=== PATIENT | female | born 1980 | race Caucasian/White ===

== ENCOUNTER 2017-05-09 17:43 | Emergency (ER) | payer BC, OTHER ==
[2017-05-09 18:32] LABS: CHLORIDE,CL 102 mmol/L (98-107); SODIUM,NA 138 mmol/L (136-145)
--- NOTE | 2017-05-09 18:40 | EDM.PDOC ---
<Bubba Ren - Last Filed: 05/09/17 18:37> ED HPI GENERAL MEDICAL PROBLEM - General Chief Complaint: Abdominal Pain Stated Complaint: Abdominal Pain; Vaginal Bleeding Time Seen by Provider: 05/09/17 17:55 Source of Information: Reports: Patient, Old Records, RN, RN Notes Reviewed History Limitations: Reports: No Limitations - History of Present Illness INITIAL COMMENTS - FREE TEXT/NARRATIVE: Patient presents emergency room at [facility] complaining of abdominal pain with cramping with concurrent vaginal bleeding. The patient states that she had her regular menstrual cycle which completed on April 30. The patient states that she has regular cycles every 28 days. The patient states she has her heavy flow days on days 3 and 4. The patient states that she started having vaginal spotting about 4 days ago. The patient thought her period Was occurring early therefore she was not all that concerned until yesterday when her menstrual flow became very heavy and unusual to her. The patient states she has felt more fatigued. The patient states she has lower pelvic pain that is bilateral. The patient has felt somewhat nauseous but has not vomited. The patient states that she has been trying to get over the past year. The patient had a LEEP procedure last spring by Dr. Galeano. Onset: Gradual Onset Date: 05/06/17 Duration: Getting Worse, Waxing/Waning Abdomen Pain Score (Numeric/FACES): 3 - Related Data Allergies Allergy/AdvReac Type Severity Reaction Status Date / Time trimethoprim [From Bactrim] Allergy Mild Itching Verified 05/09/17 18:30 sulfamethoxazole Allergy Itching Verified 05/09/17 18:30 [From Bactrim] Home Meds: Home Meds Ondansetron [Zofran ODT] 4 mg PO Q4H PRN #20 tab.dis 05/15/16 [Rx] Acetaminophen [Tylenol Extra Strength] 500 mg PO Q6H PRN 05/09/17 [History] Amylase/Lipase/Protease [Pancrelipase 5,000] 1 cap PO TIDMEALS 05/09/17 [History ] ClonazePAM [KlonoPIN] 1 tab PO BID PRN 05/09/17 [History] Ibuprofen 800 mg PO Q4HR PRN 05/09/17 [History] Lactobac Cmb #3/Fos/Pantethine [Probiotic & Acidophilus] 1 each PO DAILY [History] Lansoprazole [Prevacid] 30 mg PO DAILY 05/09/17 [History] Melatonin 10 mg PO BEDTIME 05/09/17 [History] Nicotine [Habitrol] 21 mg TRDERM DAILY 05/09/17 [History] Prenat Vit Comb.10/Iron/Fa/Dha [Vitafol-OB + DHA] 1 each PO DAILY 05/09/17 [ History] Sucralfate [Carafate] 1 gm PO ASDIRECTED 05/09/17 [History] traMADol HCl [Tramadol HCl] 1 tab PO Q6H PRN 05/09/17 [History] Past Medical History HEENT History: Reports: None Gastrointestinal History: Reports: Irritable Bowel Syndrome, Pancreatitis, Other (See Below) Other Gastrointestinal History: ERCP, stent 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 Neurological History: Reports: Concussion Psychiatric History: Reports: Anxiety - Infectious Disease History Infectious Disease History: Reports: Chicken Pox - Past Surgical History HEENT Surgical History: Reports: Oral Surgery Social & Family History - Family History HEENT: Reports: None Cardiac: Reports: Bypass, Hypertension, Other (See Below) Other Cardiac Family History: mother quad bypass Respiratory: Reports: None Other Respiratory Family Hisory: Lung Ca GI: Reports: None : Reports: None OBGYN: Reports: None Musculoskeletal: Reports: None Neurological: Reports: None Psychiatric: Reports: None Endocrine/Metabolic: Reports: None Hematologic: Reports: None Immunologic: Reports: None Dermatologic: Reports: None Oncologic: Reports: Colon, Other (See Below) Other Oncologic Family History: grandma colon ca - Tobacco Use Smoking Status *Q: Current Every Day Smoker Years of Tobacco use: 17 Packs/Tins Daily: 0.5 Used Tobacco, but Quit: No Second Hand Smoke Exposure: Yes - Alcohol Use Days Per Week of Alcohol Use: 1 Number of Drinks Per Day: 4 Total Drinks Per Week: 4 - Recreational Drug Use Recreational Drug Use: No ED ROS GENERAL - Review of Systems Review Of Systems: See Below Constitutional: Reports: Fatigue. Denies: Fever, Chills, Weakness Respiratory: Denies: Shortness of Breath, Cough Cardiovascular: Denies: Chest Pain, Palpitations GI/Abdominal: Reports: Abdominal Pain, Nausea. Denies: Diarrhea, Vomiting : Reports: Hematuria, Irregular Menses, Pain. Denies: Flank Pain Skin: Reports: No Symptoms Neurological: Reports: No Symptoms ED EXAM, RENAL/ - Physical Exam Exam: See Below Exam Limited By: No Limitations General Appearance: Alert, No Apparent Distress Respiratory/Chest: No Respiratory Distress, Lungs Clear, Normal Breath Sounds Cardiovascular: Normal Peripheral Pulses, Regular Rate, Rhythm GI/Abdominal: Normal Bowel Sounds, Soft, Non-Tender (Female) Exam: Deferred Neurological: Alert, Oriented Skin Exam: Warm, Dry, Intact, Normal Color, No Rash Course - Vital Signs Last Recorded V/S: Last Vital Signs Temp 37.7 C 05/09/17 17:55 Pulse 93 05/09/17 17:55 Resp 18 05/09/17 17:55 BP 107/57 L 05/09/17 18:30 Pulse Ox 100 05/09/17 17:55 - Orders/Labs/Meds Orders: Active Orders 24 hr Category Date Time Status Abdomen Pelvis w Cont [CT] Stat Exams 05/09/17 17:57 Taken Sodium Chloride 0.9% [Saline Flush] Med 05/09/17 18:56 Active 10 ml FLUSH ASDIRECTED PRN Peripheral IV Insertion Adult [OM.PC] Routine Oth 05/09/17 18:56 Ordered Medication Orders Sodium Chloride (Saline Flush) 10 ml FLUSH ASDIRECTED PRN PRN Reason: Keep Vein Open Labs: Laboratory Tests 05/09/17 05/09/17 05/09/17 Range/Units 18:00 18:00 18:00 WBC 14.6 H (4.0-10.0) x10^3/uL RBC 3.81 L (4.00-5.50) x10^6/uL Hgb 11.9 L (12.0-16.0) g/dL Hct 35.5 (33.0-47.0) % MCV 93.2 H D (78.0-93.0) fL MCH 31.2 (26.0-32.0) pg MCHC 33.5 (32.0-36.0) g/dL RDW Coeff of Blayne 14.9 (10.0-15.0) % Plt Count 297 D (130-400) x10^3/uL Neut % (Auto) 73.4 (50.0-80.0) % Lymph % (Auto) 17.2 L (25.0-50.0) % [place] % (Auto) 8.6 (2.0-11.0) % Eos % (Auto) 0.7 (0.0-4.0) % Baso % (Auto) 0.1 L (0.2-1.2) % Sodium 138 (136-145) mmol/L Potassium 3.2 L (3.5-5.1) mmol/L Chloride 102 (98-107) mmol/L Carbon Dioxide 26 (21-32) mmol/L BUN 19 H (7-18) mg/dL Creatinine 0.8 (0.55-1.02) mg/dL Est Cr Clr Drug Dosing TNP Estimated GFR (MDRD) > 60 Glucose 89 (74-106) mg/dL Lactic Acid 0.9 (0.4-2.0) mmol/L Calcium 9.1 (8.5-10.1) mg/dL C-Reactive Protein 0.6 (<=0.9) mg/dL Amylase (25-115) U/L Lipase (73-393) U/L Urine Color (YELLOW) Urine Appearance (CLEAR) Urine pH (5.0-8.0) Ur Specific [place]on Urine Protein (NEGATIVE) mg/dL Urine Glucose (UA) (NEGATIVE) mg/dL Urine Ketones (NEGATIVE) mg/dL Urine Occult Blood (NEGATIVE) Urine Nitrite (NEGATIVE) Urine Bilirubin (NEGATIVE) Urine Urobilinogen (0.2) EU/dL Ur Leukocyte Esterase (NEGATIVE) Urine RBC (NOT SEEN) /HPF Urine WBC (NOT SEEN) /HPF Ur Squamous Epith Cells (NEGATIVE) /HPF Urine Bacteria (NEGATIVE) /HPF Urine Mucus (NEGATIVE) /LPF Urine HCG, Qual (NEGATIVE) 05/09/17 05/09/17 05/09/17 Range/Units 18:00 18:31 18:31 WBC (4.0-10.0) x10^3/uL RBC (4.00-5.50) x10^6/uL Hgb (12.0-16.0) g/dL Hct (33.0-47.0) % MCV (78.0-93.0) fL MCH (26.0-32.0) pg MCHC (32.0-36.0) g/dL RDW Coeff of Blayne (10.0-15.0) % Plt Count (130-400) x10^3/uL Neut % (Auto) (50.0-80.0) % Lymph % (Auto) (25.0-50.0) % [place] % (Auto) (2.0-11.0) % Eos % (Auto) (0.0-4.0) % Baso % (Auto) (0.2-1.2) % Sodium (136-145) mmol/L Potassium (3.5-5.1) mmol/L Chloride (98-107) mmol/L Carbon Dioxide (21-32) mmol/L BUN (7-18) mg/dL Creatinine (0.55-1.02) mg/dL Est Cr Clr Drug Dosing Estimated GFR (MDRD) Glucose (74-106) mg/dL Lactic Acid (0.4-2.0) mmol/L Calcium (8.5-10.1) mg/dL C-Reactive Protein (<=0.9) mg/dL Amylase 44 (25-115) U/L Lipase 251 (73-393) U/L Urine Color Yellow (YELLOW) Urine Appearance Clear (CLEAR) Urine pH 6.5 (5.0-8.0) Ur Specific Hermon >=1.030 Urine Protein Negative (NEGATIVE) mg/dL Urine Glucose (UA) Negative (NEGATIVE) mg/dL Urine Ketones 15 H (NEGATIVE) mg/dL Urine Occult Blood Large H (NEGATIVE) Urine Nitrite Negative (NEGATIVE) Urine Bilirubin Small H (NEGATIVE) Urine Urobilinogen 1.0 (0.2) EU/dL Ur Leukocyte Esterase Negative (NEGATIVE) Urine RBC 20-30 H (NOT SEEN) /HPF Urine WBC 0-5 (NOT SEEN) /HPF Ur Squamous Epith Cells Few H (NEGATIVE) /HPF Urine Bacteria Few H (NEGATIVE) /HPF Urine Mucus Rare H (NEGATIVE) /LPF Urine HCG, Qual Negative (NEGATIVE) Meds: Medications Generic Name Dose Route Start Last Admin Trade Name Freq PRN Reason Stop Dose Admin Sodium Chloride 10 ml 05/09/17 18:56 Saline Flush FLUSH ASDIRECTED PRN Keep Vein Open Discontinued Medications Generic Name Dose Route Start Last Admin Trade Name Freq PRN Reason Stop Dose Admin Morphine Sulfate 4 mg 05/09/17 19:26 05/09/17 19:42 Morphine IVPUSH 05/09/17 19:27 4 mg ONETIME ONE Administration Departure - Departure Disposition: Home, Self-Care 01 Clinical Impression: Ovarian cyst, Abdominal pain - Discharge Information Instructions: Ovarian Cyst Referrals: Darci Castaneda PA-C [Primary Care Provider] - Forms: ED Department Discharge Additional Instructions: Home to rest. Please excuse from work tomorrow due to illness. Return to ER if you have worsening abdominal pain, bleeding, fever, or other worrisome signs or symptoms. Follow-up with [facility] in the next 7-10 days for recheck. - Problem List Review Problem List Initiated/Reviewed/Updated: Yes <Claus Smith - Last Filed: 05/09/17 21:16> ED HPI GENERAL MEDICAL PROBLEM - History of Present Illness Location: Reports: Abdomen (burning abdominal pain) Quality: Reports: Burning Severity: Moderate Departure - Departure Time of Disposition: 21:14
[2017-05-09 18:49] VITALS: BP 107/57
[2017-05-09] MEDS ORDERED: Sodium Chloride 0.9% 10 ML Syringe FLUSH PRN (18:56)
[2017-05-09] MEDS ORDERED: Morphine 4 MG/ML Syringe IVPUSH ONE (19:26)
--- NOTE | 2017-05-10 00:46 | ER ---
Date of Service: 05/09/2017 SUBJECTIVE: Dasha presents to the emergency room with complaints of lower abdominal pain. Please see Bubba Ren's dictation regarding the initial care for this patient. Again, the patient states that she has been experiencing discomfort for approximately 2 days and states that it worsened yesterday. She states that she has noticed some clotting and is quite concerned because of this. The patient states that she is not experiencing any fever or chills. She states that she is actively trying to become and her last episode of intercourse was on approximately 05/02/2017. The patient is a 1, para 0, AB 1. She states that she is experiencing intermittent abdominal cramping and occasional sharp spasms of pain. PAST MEDICAL HISTORY: 1. Chronic pancreatitis. 2. GERD. MEDICATIONS: 1. Zofran ODT. 2. Tylenol Extra Strength. 3. Ibuprofen. 4. Klonopin. 5. vitamin. 6. Melatonin. 7. Prevacid. 8. Probiotics/acidophilus. 9. Tramadol. 10.Carafate. 11.Amylase/lipase. 12.Protease enzymes. ALLERGIES: Bactrim. REVIEW OF SYSTEMS: General: No fever or chills. HEENT: No sore throat, rhinorrhea, or congestion. Respiratory: No shortness of breath. Cardiac: Denies any substernal chest pain. No jaw, arm, neck, or back pain. GI/: Complains of lower abdominal pain with vaginal bleeding of maroon- colored blood with passage of occasional blood clots. She denies any diarrhea or vomiting. No nausea. No melena, hematochezia, or hematemesis. : Denies any dysuria. Musculoskeletal: No myalgias or arthralgias. Neurologic: No fainting, blackouts, or lightheadedness. PHYSICAL EXAMINATION: General: This is a 36-year-old female patient, who is in no acute distress. Vital Signs: Initial blood pressure was 88/47, was rechecked and was 107/57; heart rate is 93; temperature is 37.7; respiratory rate is 18; and O2 saturations 100%. Skin: Warm, pale, and dry. HEENT: Head is normocephalic, atraumatic. Eyes, PERRLA. Extraocular movements intact. Mouth, oral mucosa is moist. Lungs: Clear to auscultation. Heart: Regular rate and rhythm. Abdomen: Soft and nontender. There is no hepatosplenomegaly noted. There are no masses noted. Extremities: Without edema. Neurologic: The patient is alert and oriented. Answers all questions appropriately. Her speech is fluent. Her gait is within normal limits. LABORATORY DATA: WBCs 14.6, hemoglobin is 11.9, and platelets are 297. Chemistry: Sodium is 138, potassium is 3.2, chloride is 102, bicarb is 26, BUN is 19, creatinine is 0.8, GFR is greater than 60, glucose is 89, lactic acid is 0.9, and calcium is 9.1. CRP is 0.6, amylase is 44, and lipase is 251. Urinalysis was obtained; specific gravity is 1.030, pH was 6.5, negative for protein, glucose, nitrites and leukocyte esterase. She did have 15 ketones, large occult blood, which is secondary to the vaginal bleeding. She also did have small bilirubin. CT scan of the patient's abdomen and pelvis with IV contrast was obtained. She did have evidence of chronic pancreatitis and also evidence of right adnexal cyst measuring 3.7 cm with minimal free fluid in the pelvic cul-de-sac. EMERGENCY ROOM COURSE: IV access had been established. The patient was given 4 mg of morphine IV with good resolution of her pain. Pelvic exam was performed. Her cervix was closed. She had no adnexal or cervical motion discomfort. No discharge noted. She did have small amount of clotted blood in the vagina and a scant amount of maroon-colored blood coming from the cervix. ASSESSMENT: Lower abdominal pain, likely secondary to a ruptured ovarian cyst. PLAN: The patient will be discharged. Tylenol, ibuprofen for discomfort. Return if there is any vaginal discharge noted. Also, return if she develops any worsening discomfort, fever, chills, or other worrisome signs or symptoms. I would like her to follow up with her [facility] in the next 7 to 10 days. All questions were answered. MWK: 05/09/2017 21:28:20 MODL: 05/10/2017 00:35:55 /[id number]
== END 2017-05-09 21:19 | disposition home or self-care (01) ==
LOC: VM.ED 17:43
DX: N83.291 Other ovarian cyst, right side (principal); K21.9 Gastro-esophageal reflux disease without esophagitis; F17.210 Nicotine dependence, cigarettes, uncomplicated; Z88.1 Allergy status to other antibiotic agents; Z88.8 Allergy status to other drugs, medicaments and biological substances; Z88.2 Allergy status to sulfonamides
CPT/HCPCS: 36415; 74177; 80048; 81001; 81025; 82150; 83605; 83690; 85025; 86140; 96374; 99284; J2270

== ENCOUNTER 2017-05-27 10:48 | Inpatient (IN) | payer BC, OTHER ==
[2017-05-27] MEDS ORDERED: Morphine 4 MG/ML Syringe IVPUSH ONE (11:38)
[2017-05-27] MEDS ORDERED: Sodium Chloride 0.9% 1,000 ML IV ONE (11:38)
[2017-05-27] MEDS ORDERED: Ondansetron 4 MG/2 ML SDV IVPUSH ONE (11:38)
[2017-05-27] MEDS ORDERED: HYDROmorphone 1 MG/ML Syringe IVPUSH ONE ×2 (12:10→13:19)
[2017-05-27 12:27] LABS: CHLORIDE,CL 104 mmol/L (98-107); SODIUM,NA 140 mmol/L (136-145)
[2017-05-27] MEDS ORDERED: Ertapenem 1 GM in Sodium Chloride 0.9% 100 ML IV SCH (12:30)
[2017-05-27] MEDS ORDERED: Ketorolac 30 MG/ML SDV IVPUSH ONE (12:44)
[2017-05-27] MEDS: Sodium Chloride 0.9% 1,000 ML IV SCH ×2 (13:54→22:05)
--- NOTE | 2017-05-27 13:54 | EDM.PDOC ---
ED HPI GENERAL MEDICAL PROBLEM - General Chief Complaint: Abdominal Pain Stated Complaint: ABDOMINAL PAIN Time Seen by Provider: 05/27/17 11:16 Source of Information: Reports: Patient History Limitations: Reports: No Limitations - History of Present Illness INITIAL COMMENTS - FREE TEXT/NARRATIVE: Pt. states that she went out to eat at a [employer] last night. Throughout the night last night, she developed worsening onset of upper abdominal pain with radiation into the back. Pt. states that she is experiencing nausea but not vomiting. She denies any fever or chills. She has a history of recurrent pancreatitis with her last episode being this past spring. She was seen in ER last month with lower abdominal pain thought to be secondary to ovarian cyst. Onset: Today Onset Time: 05:00 Location: Reports: Abdomen Quality: Reports: Stabbing Severity: Severe Upper Abdominal Pain Score (Numeric/FACES): 9 - Related Data Allergies Allergy/AdvReac Type Severity Reaction Status Date / Time trimethoprim [From Bactrim] Allergy Mild Itching Verified 05/27/17 11:20 sulfamethoxazole Allergy Itching Verified 05/27/17 11:20 [From Bactrim] Home Meds: Home Meds Ondansetron [Zofran ODT] 4 mg PO Q4H PRN #20 tab.dis 05/15/16 [Rx] Acetaminophen [Tylenol Extra Strength] 500 mg PO Q6H PRN 05/09/17 [History] Amylase/Lipase/Protease [Pancrelipase 5,000] 1 cap PO TIDMEALS 05/09/17 [History ] ClonazePAM [KlonoPIN] 1 tab PO BID PRN 05/09/17 [History] Ibuprofen 800 mg PO Q4HR PRN 05/09/17 [History] Lactobac Cmb #3/Fos/Pantethine [Probiotic & Acidophilus] 1 each PO DAILY [History] Lansoprazole [Prevacid] 30 mg PO DAILY 05/09/17 [History] Melatonin 10 mg PO BEDTIME 05/09/17 [History] Prenat Vit Comb.10/Iron/Fa/Dha [Vitafol-OB + DHA] 1 each PO DAILY 05/09/17 [ History] traMADol HCl [Tramadol HCl] 1 tab PO Q6H PRN 05/09/17 [History] Past Medical History HEENT History: Reports: None Gastrointestinal History: Reports: Irritable Bowel Syndrome, Pancreatitis, Other (See Below) Other Gastrointestinal History: ERCP, stent for bile duct - 2 months ago - was taken out, nerve block to surgical area [employer] History: Reports: Spontaneous Neurological History: Reports: Concussion Psychiatric History: Reports: Anxiety - Infectious Disease History Infectious Disease History: Reports: Chicken Pox - Past Surgical History HEENT Surgical History: Reports: Oral Surgery Social & Family History - Family History HEENT: Reports: None Cardiac: Reports: Bypass, Hypertension, Other (See Below) Other Cardiac Family History: mother quad bypass Respiratory: Reports: None Other Respiratory Family Hisory: Lung Ca GI: Reports: None : Reports: None OBGYN: Reports: None Musculoskeletal: Reports: None Neurological: Reports: None Psychiatric: Reports: None Endocrine/Metabolic: Reports: None Hematologic: Reports: None Immunologic: Reports: None Dermatologic: Reports: None Oncologic: Reports: Colon, Other (See Below) Other Oncologic Family History: grandma colon ca - Tobacco Use Smoking Status *Q: Current Every Day Smoker Years of Tobacco use: 15 Packs/Tins Daily: 0.3 Used Tobacco, but Quit: No Second Hand Smoke Exposure: Yes - Alcohol Use Days Per Week of Alcohol Use: 1 Number of Drinks Per Day: 4 Total Drinks Per Week: 4 - Recreational Drug Use Recreational Drug Use: No ED ROS GENERAL - Review of Systems Review Of Systems: See Below Constitutional: Reports: No Symptoms HEENT: Reports: No Symptoms Respiratory: Reports: No Symptoms Cardiovascular: Reports: No Symptoms Endocrine: Reports: No Symptoms GI/Abdominal: Reports: Abdominal Pain, Nausea : Reports: No Symptoms Musculoskeletal: Reports: No Symptoms Skin: Reports: No Symptoms Neurological: Reports: No Symptoms Psychiatric: Reports: No Symptoms Hematologic/Lymphatic: Reports: No Symptoms Immunologic: Reports: No Symptoms ED EXAM, GI/ABD - Physical Exam Exam: See Below Exam Limited By: No Limitations General Appearance: Alert, Severe Distress Throat/Mouth: Normal Inspection, Normal Oropharynx, Normal Voice, No Airway Compromise Head: Atraumatic, Normocephalic Neck: Normal Inspection, Supple, Non-Tender Respiratory/Chest: No Respiratory Distress, Lungs Clear, Normal Breath Sounds, No Accessory Muscle Use Cardiovascular: Normal Peripheral Pulses, Regular Rate, Rhythm GI/Abdominal Exam: Normal Bowel Sounds, No Organomegaly, No Distention, No Mass , Guarding, Tender (mid upper abdomen) Back Exam: Normal Inspection, Full Range of Motion Extremities: Normal Inspection, Normal Range of Motion, Non-Tender Neurological: Alert, Oriented, CN II-XII Intact, Normal Cognition, Normal Gait, Normal Reflexes, No Motor/Sensory Deficits Psychiatric: Normal Affect, Normal Mood Skin Exam: Warm, Dry, Pallor Lymphatic: No Adenopathy EKG INTERPRETATION Rhythm: NSR Course - Vital Signs Last Recorded V/S: Last Vital Signs Temp 37.1 C 05/27/17 11:16 Pulse 77 05/27/17 15:25 Resp 16 05/27/17 15:25 BP 103/62 05/27/17 14:07 Pulse Ox 99 05/27/17 15:25 - Orders/Labs/Meds Orders: Active Orders 24 hr Category Date Time Status Patient Status [ADT] Routine ADT 05/27/17 15:31 Ordered EKG Documentation Completion [RC] STAT Care 05/27/17 11:37 Ordered Abdomen Pelvis w Cont [CT] Stat Exams 05/27/17 13:05 Taken GGT [REF] Stat Lab 05/27/17 15:29 Ordered Ertapenem [INVanz] 1 gm Med 05/27/17 12:30 Active Sodium Chloride 0.9% [Normal Saline] 100 ml IV Q24H Sodium Chloride 0.9% [Normal Saline] 1,000 ml Med 05/27/17 14:00 Active IV ASDIRECTED Sodium Chloride 0.9% [Normal Saline] 100 ml Med 05/27/17 14:15 Active IV ASDIRECTED Sodium Chloride 0.9% [Saline Flush] Med 05/27/17 11:36 Active 10 ml FLUSH ASDIRECTED PRN Peripheral IV Insertion Adult [OM.PC] Routine Oth 05/27/17 11:37 Ordered Medication Orders Ertapenem 1 gm/ Sodium (Chloride) 100 mls @ 200 mls/hr IV Q24H RACHEL Last Admin: 05/27/17 12:38 Dose: 200 mls/hr Sodium Chloride (Normal Saline) 1,000 mls @ 125 mls/hr IV ASDIRECTED RACHEL Last Admin: 05/27/17 13:54 Dose: 125 mls/hr Sodium Chloride (Normal Saline) 100 mls @ 3 mls/sec IV ASDIRECTED RACHEL Last Admin: 05/27/17 14:27 Dose: 3 mls/sec Sodium Chloride (Saline Flush) 10 ml FLUSH ASDIRECTED PRN PRN Reason: Keep Vein Open Labs: Laboratory Tests 05/27/17 05/27/17 05/27/17 Range/Units 11:45 11:45 11:45 WBC 20.6 H* (4.0-10.0) x10^3/uL RBC 3.89 L (4.00-5.50) x10^6/uL Hgb 12.2 (12.0-16.0) g/dL Hct 36.7 (33.0-47.0) % MCV 94.3 H (78.0-93.0) fL MCH 31.4 (26.0-32.0) pg MCHC 33.2 (32.0-36.0) g/dL RDW Coeff of Blayne 14.2 (10.0-15.0) % Plt Count 366 (130-400) x10^3/uL Add Manual Diff Yes Neutrophils % (Manual) 85 H (50-80) % Band Neutrophils % 3 (0-6) % Lymphocytes % (Manual) 12 L (25-50) % Platelet Estimate Adequate PT 9.6 L (9.8-11.8) SEC INR 0.9 L (2.0-3.5) Sodium 140 (136-145) mmol/L Potassium 3.9 (3.5-5.1) mmol/L Chloride 104 (98-107) mmol/L Carbon Dioxide 27 (21-32) mmol/L BUN 19 H (7-18) mg/dL Creatinine 0.6 (0.55-1.02) mg/dL Est Cr Clr Drug Dosing 104.49 mL/min Estimated GFR (MDRD) > 60 Glucose 99 (74-106) mg/dL Calcium 9.5 (8.5-10.1) mg/dL Corrected Calcium 9.90 (8.5-10.1) mg/dL Total Bilirubin 0.3 (0.2-1.0) mg/dL AST 14 L (15-37) U/L ALT 15 (14-59) U/L Alkaline Phosphatase 77 (46-116) U/L Creatine Kinase 42 (26-192) U/L Creatine Kinase Index TNP CK-MB (CK-2) TNP Troponin I < 0.017 (<=0.056) ng/mL C-Reactive Protein < 0.2 (<=0.9) mg/dL Total Protein 7.2 (6.4-8.2) g/dL Albumin 3.5 (3.4-5.0) g/dL Globulin 3.7 Albumin/Globulin Ratio 0.95 Amylase 181 H (25-115) U/L Lipase 1874 H (73-393) U/L Urine Color (YELLOW) Urine Appearance (CLEAR) Urine pH (5.0-8.0) Ur Specific Hughes Urine Protein (NEGATIVE) mg/dL Urine Glucose (UA) (NEGATIVE) mg/dL Urine Ketones (NEGATIVE) mg/dL Urine Occult Blood (NEGATIVE) Urine Nitrite (NEGATIVE) Urine Bilirubin (NEGATIVE) Urine Urobilinogen (0.2) EU/dL Ur Leukocyte Esterase (NEGATIVE) Urine RBC (NOT SEEN) /HPF Urine WBC (NOT SEEN) /HPF Ur Squamous Epith Cells (NEGATIVE) /HPF Amorphous Sediment Urine Bacteria (NEGATIVE) /HPF Urine Mucus (NEGATIVE) /LPF Urine HCG, Qual (NEGATIVE) 05/27/17 05/27/17 Range/Units 11:55 11:55 WBC (4.0-10.0) x10^3/uL RBC (4.00-5.50) x10^6/uL Hgb (12.0-16.0) g/dL Hct (33.0-47.0) % MCV (78.0-93.0) fL MCH (26.0-32.0) pg MCHC (32.0-36.0) g/dL RDW Coeff of Blayne (10.0-15.0) % Plt Count (130-400) x10^3/uL Add Manual Diff Neutrophils % (Manual) (50-80) % Band Neutrophils % (0-6) % Lymphocytes % (Manual) (25-50) % Platelet Estimate PT (9.8-11.8) SEC INR (2.0-3.5) Sodium (136-145) mmol/L Potassium (3.5-5.1) mmol/L Chloride (98-107) mmol/L Carbon Dioxide (21-32) mmol/L BUN (7-18) mg/dL Creatinine (0.55-1.02) mg/dL Est Cr Clr Drug Dosing mL/min Estimated GFR (MDRD) Glucose (74-106) mg/dL Calcium (8.5-10.1) mg/dL Corrected Calcium (8.5-10.1) mg/dL Total Bilirubin (0.2-1.0) mg/dL AST (15-37) U/L ALT (14-59) U/L Alkaline Phosphatase (46-116) U/L Creatine Kinase (26-192) U/L Creatine Kinase Index CK-MB (CK-2) Troponin I (<=0.056) ng/mL C-Reactive Protein (<=0.9) mg/dL Total Protein (6.4-8.2) g/dL Albumin (3.4-5.0) g/dL Globulin Albumin/Globulin Ratio Amylase (25-115) U/L Lipase (73-393) U/L Urine Color Yellow (YELLOW) Urine Appearance Clear (CLEAR) Urine pH 8.5 H (5.0-8.0) Ur Specific Hughes 1.020 Urine Protein Negative (NEGATIVE) mg/dL Urine Glucose (UA) Negative (NEGATIVE) mg/dL Urine Ketones Negative (NEGATIVE) mg/dL Urine Occult Blood Negative (NEGATIVE) Urine Nitrite Negative (NEGATIVE) Urine Bilirubin Negative (NEGATIVE) Urine Urobilinogen 0.2 (0.2) EU/dL Ur Leukocyte Esterase Negative (NEGATIVE) Urine RBC 0-5 (NOT SEEN) /HPF Urine WBC 0-5 (NOT SEEN) /HPF Ur Squamous Epith Cells Rare (NEGATIVE) /HPF Amorphous Sediment Few Urine Bacteria Few H (NEGATIVE) /HPF Urine Mucus Not seen (NEGATIVE) /LPF Urine HCG, Qual Negative (NEGATIVE) Meds: Medications Generic Name Dose Route Start Last Admin Trade Name Freq PRN Reason Stop Dose Admin Ertapenem 1 gm/ Sodium 100 mls @ 200 mls/hr 05/27/17 12:30 05/27/17 12:38 Chloride IV 200 mls/hr Q24H RACHEL Administration Sodium Chloride 1,000 mls @ 125 mls/hr 05/27/17 14:00 05/27/17 13:54 Normal Saline IV 125 mls/hr ASDIRECTED RACHEL Administration Sodium Chloride 100 mls @ 3 mls/sec 05/27/17 14:15 05/27/17 14:27 Normal Saline IV 3 mls/sec ASDIRECTED RACHEL Administration Sodium Chloride 10 ml 05/27/17 11:36 Saline Flush FLUSH ASDIRECTED PRN Keep Vein Open Discontinued Medications Generic Name Dose Route Start Last Admin Trade Name Merline PRN Reason Stop Dose Admin Diphenhydramine HCl 25 mg 05/27/17 13:55 05/27/17 14:00 Benadryl IVPUSH 05/27/17 13:56 25 mg ONETIME ONE Administration Hydromorphone HCl 1 mg 05/27/17 12:10 05/27/17 12:15 Dilaudid IVPUSH 05/27/17 12:11 1 mg ONETIME ONE Administration Hydromorphone HCl 1 mg 05/27/17 13:19 05/27/17 13:26 Dilaudid IVPUSH 05/27/17 13:20 1 mg ONETIME ONE Administration Sodium Chloride 1,000 mls @ 1,000 mls/hr 05/27/17 11:38 05/27/17 11:52 Normal Saline IV 05/27/17 12:37 1,000 mls/hr .BOLUS ONE Administration Iopamidol 100 ml 05/27/17 14:09 05/27/17 14:27 Isovue-300 (61%) IVPUSH 05/27/17 14:10 100 ml ONETIME ONE Administration Ketorolac Tromethamine 30 mg 05/27/17 12:44 05/27/17 12:50 Toradol IVPUSH 05/27/17 12:45 30 mg ONETIME ONE Administration Morphine Sulfate 4 mg 05/27/17 11:38 05/27/17 11:51 Morphine IVPUSH 05/27/17 11:39 4 mg ONETIME ONE Administration Ondansetron HCl 4 mg 05/27/17 11:38 05/27/17 11:49 Zofran IVPUSH 05/27/17 11:39 4 mg ONETIME ONE Administration Prochlorperazine Edisylate 10 mg 05/27/17 13:55 05/27/17 14:04 Compazine IV 05/27/17 13:56 10 mg ONETIME ONE Administration - Re-Assessments/Exams Free Text/Narrative Re-Assessment/Exam: 05/27/17 14:05 Pt. was initially given 4mg morphine IV and zofran 4mg IV. This did little to improve the pain. Pt. was then given dilaudid 1 mg IV and toradol 30mg IV. Pt. continued to have severe pain and continued nausea, and was given 1 mg dilaudid IV, 10mg compazine IV, and 25mg benadryl IV. She was given oral contrast in anticipation of her CT abdomen and pelvis. Departure - Departure Time of Disposition: 15:35 Disposition: Admitted As Inpatient 68 Condition: Serious Clinical Impression: Pancreatitis - Discharge Information Referrals: Darci Castaneda PA-C [Primary Care Provider] - Forms: ED Department Discharge - My Orders Last 24 Hours: My Active Orders 05/27/17 11:36 Sodium Chloride 0.9% [Saline Flush] 10 ml FLUSH ASDIRECTED PRN 05/27/17 11:37 EKG Documentation Completion [RC] STAT Peripheral IV Insertion Adult [OM.PC] Routine 05/27/17 12:30 Ertapenem [INVanz] 1 gm Sodium Chloride 0.9% [Normal Saline] 100 ml IV Q24H 05/27/17 13:05 Abdomen Pelvis w Cont [CT] Stat 05/27/17 14:00 Sodium Chloride 0.9% [Normal Saline] 1,000 ml IV ASDIRECTED 05/27/17 14:15 Sodium Chloride 0.9% [Normal Saline] 100 ml IV ASDIRECTED 05/27/17 15:29 GGT [REF] Stat 05/27/17 15:31 Patient Status [ADT] Routine - Assessment/Plan Last 24 Hours: My Active Orders 05/27/17 11:36 Sodium Chloride 0.9% [Saline Flush] 10 ml FLUSH ASDIRECTED PRN 05/27/17 11:37 EKG Documentation Completion [RC] STAT Peripheral IV Insertion Adult [OM.PC] Routine 05/27/17 12:30 Ertapenem [INVanz] 1 gm Sodium Chloride 0.9% [Normal Saline] 100 ml IV Q24H 05/27/17 13:05 Abdomen Pelvis w Cont [CT] Stat 05/27/17 14:00 Sodium Chloride 0.9% [Normal Saline] 1,000 ml IV ASDIRECTED 05/27/17 14:15 Sodium Chloride 0.9% [Normal Saline] 100 ml IV ASDIRECTED 05/27/17 15:29 GGT [REF] Stat 05/27/17 15:31 Patient Status [ADT] Routine Assessment:: acute pancreatitis
[2017-05-27] MEDS ORDERED: diphenhydrAMINE 50 MG/ML SDV IVPUSH ONE (13:55)
[2017-05-27] MEDS ORDERED: Prochlorperazine 10 MG/2 ML SDV IV ONE (13:55)
[2017-05-27] MEDS ORDERED: Iopamidol 612 MG/ML 100 ML Bottle IVPUSH ONE (14:09)
[2017-05-27] MEDS ORDERED: Sodium Chloride 0.9% 100 ML IV SCH (14:15)
[2017-05-27] MEDS ORDERED: Ondansetron 4 MG Tab.DIS PO PRN (16:41)
[2017-05-27] MEDS ORDERED: LORazepam 2 MG/ML SDV IVPUSH PRN (17:13)
[2017-05-27] MEDS ORDERED: Acetaminophen 500 MG Tab PO PRN (17:16)
[2017-05-27] MEDS ORDERED: ClonazePAM 0.5 MG Tab PO PRN (17:16)
[2017-05-27] MEDS: HYDROmorphone 1 MG/ML Syringe IVPUSH PRN ×3 (17:29→22:03)
[2017-05-27] MEDS: Nicotine 7 MG/24 Hr Patch TRDERM SCH (17:29)
[2017-05-27] MEDS: Melatonin 3 MG Tab PO SCH (19:43)
[2017-05-27] MEDS: Ondansetron 4 MG/2 ML SDV IVPUSH PRN (19:44)
[2017-05-27] MEDS ORDERED: Non-Formulary Medication 1 Each (Melatonin [Melatonin] 10 MG) PO SCH (20:00)
--- NOTE | 2017-05-27 23:27 | HP ---
CHIEF COMPLAINT: Abdominal pain. HISTORY OF PRESENT ILLNESS: This is a 36-year-old with longstanding history of pancreatitis. The patient has been followed by the GI Clinic. She actually had a celiac block on around 04/04. It worked for about a month, but over the last 2 weeks, the patient has been noticing an increase in abdominal discomfort, which suddenly got much worse this morning. She was admitted last to [facility] 1 year ago for pancreatitis, then in November, she underwent a [place] procedure. She has also had laparoscopic cholecystectomy back in 2012. Her last pancreatitis admission she states was back in January, otherwise she has not had any problems since. She has been avoiding all alcohol. She still smokes about 5 cigarettes a day. Last night, she did go out and eat [employer] food. The patient has not vomited, but does feel nauseated. She is passing gas. All her bowel movements have been okay. She has not had any fever. She did get an IV dose of Invanz in the ER. She had a CT scan which did not show any pseudocyst or abscess, but acute on chronic pancreatitis. Her white count was 20,000. Otherwise, the patient received IV morphine and Dilaudid. She received some Benadryl, ketorolac, and Compazine and Zofran and was much more comfortable, but she feels like the pain is sort of coming back. She did not eat anything today. ALLERGIES: Include Bactrim and trimethoprim, which is in Bactrim. MEDICATIONS: Her medication list, mainly she was taking pancreatic enzymes. She did try a tramadol at home with some Alyson-Makinen this morning, but it did not help. Otherwise, she denies using other medications even though Klonopin, Zofran, NicoDerm, Tylenol, Prevacid, melatonin, probiotics, Carafate, Motrin, vitamins have all been on her list. She was in the ER on the for some vaginal bleeding, thought about a ruptured ovarian cyst. Her last full period was the beginning of April. She is trying to get , but her urine test today was negative. PAST MEDICAL HISTORY: Dysthymic disorder with anxiety, chronic pancreatitis, previously abnormal Pap testing, falls with Gynecology, tobacco abuse, panic attacks. PAST SURGICAL HISTORY: She has had the celiac plexus block and other pancreatic procedure as listed above with pancreatojejunostomy. She has had a knee arthroscopy, cholecystectomy, ERCPs, dental extraction of the wisdom teeth. She has had multiple upper endoscopies with endoscopy recently on 04/04/2017 showing normal esophagus and gastric fundus with some mild erythema mucosa in the gastric antrum. SOCIAL HISTORY: The patient is . She is working. She unfortunately still smokes about 5 cigarettes per day. FAMILY HISTORY: Mother has had heart bypass surgery. Father had stroke. REVIEW OF SYSTEMS: General: There has been no major weight loss or weight gains, although she is about 12 pounds less in April than she was back in November. No fever, no chills. HEENT: No sore throat. Cardiac: No chest pain. No palpitations. Respiratory: No cough, no shortness of breath. Abdomen: See HPI. : No dysuria. Psychologic: No depression or anxiety. Otherwise, all systems reviewed and found to be negative unless otherwise stated. LABORATORY DATA: Her lab work does show her to have white count 20.6, hemoglobin 12.2, platelets 366. INR 0.6. Sodium 140, potassium 3.9, chloride 109, bicarb 27, BUN 19, creatinine 0.6, glucose 99, calcium 9.5, AST 14, ALT 15, alkaline phosphatase 77. CK 42, troponin normal. CRP less than 0.2, albumin 3.5, amylase 181, lipase 1874. UA normal. CT as described above. ASSESSMENT: 1. Acute on chronic pancreatitis, this is recurrent. The patient has had multiple previous episodes previously in 01/2017. She is following with the GI Clinic and actually has an appointment with them up next week, we will update them about her current situation. At this point, we will do n.p.o. diet with ice chips. We will do IV Dilaudid for pain control. We will do IV nausea medications. We will give her IV fluids. We will see how she does over the next 12-24 hours. She understands that if her condition worsens, she will be transferred to [place]. If it improves, she will be discharged home. 2. Smoking. We have ordered a nicotine patch. 3. History of anxiety. I have ordered her home medications. 4. Leukocytosis probably related to pancreatitis. She already got a dose of ertapenem. We will see how she does off antibiotics over the next 24-48 hours. 5. History of alcohol use. She denies any current alcohol use. GGT was sent off by the ER provider. PLAN: At this point, the patient is admitted for acute cares. We will have her on Lovenox for DVT prophylaxis, as I do anticipate her stay to be more than 2 days. We will advance her diet as tolerated. We will do IV pain medications currently. Anticipate that her condition will improve and she will be discharged home, otherwise we will consider transfer to [place]. GI specialist will be updated. Lovenox ordered for DVT prophylaxis. We will repeat lab work tomorrow. MKA: 05/27/2017 17:25:49 MODL: 05/27/2017 23:21:13 /[id number]
[2017-05-28] MEDS: HYDROmorphone 1 MG/ML Syringe IVPUSH PRN ×6 (00:16→14:59)
[2017-05-28] MEDS: Ondansetron 4 MG/2 ML SDV IVPUSH PRN (03:56)
[2017-05-28] MEDS: Sodium Chloride 0.9% 10 ML Syringe FLUSH PRN ×2 (03:57→06:14)
[2017-05-28] MEDS: Omeprazole 20 MG Cap.CR PO SCH (06:24)
[2017-05-28 07:53] LABS: CHLORIDE,CL 107 mmol/L (98-107); SODIUM,NA 138 mmol/L (136-145)
[2017-05-28] MEDS ORDERED: Enoxaparin 40 MG/0.4 ML Syringe SUBCUT SCH (08:00)
[2017-05-28] MEDS: LIPASE PO SCH ×2 (08:19→13:30)
[2017-05-28] MEDS: PROTEASE PO SCH ×2 (08:19→13:30)
[2017-05-28] MEDS: AMYLASE PO SCH ×2 (08:19→13:30)
[2017-05-28] MEDS: Amylase/Lipase/Protease 10,000 Unit Cap.CR PO SCH ×3 (08:58→18:03)
[2017-05-28] MEDS: Nicotine 7 MG/24 Hr Patch TRDERM SCH (09:00)
--- NOTE | 2017-05-28 09:37 | PN ---
Progress Note for [facility] Date: 05/28/2017 Room #: VM.204 SUBJECTIVE: Hospital day #2 on a 36-year-old seen today for pancreatitis. Her pain is much better today. Last Dilaudid was at 6:00 a.m. She has received 6 mg inpatient. She did receive Zofran during the night for nausea, but has not vomited. She otherwise has been passing gas, but no bowel movements. No shortness of breath. No cough. OBJECTIVE: Vital Signs: Her temp is 99.3, pulse 60, blood pressure 114/59, respiratory rate 18, O2 98% on room air. General: She is in no acute distress. Heart: Regular rate and rhythm. S1, S2 without murmur. Lungs: Lung sounds are clear to auscultation bilaterally without crackles or wheezes. Abdomen: Has positive bowel sounds. It is soft. It is just mildly tender. Extremities: Warm and dry. No edema. Mental Status: She is alert and oriented x3. LABORATORY DATA: Today does show her white count to improve to 8.6, hemoglobin dropped to 9.0, platelets down to 224. Creatinine at 0.5, potassium 3.6, calcium 8.1, otherwise electrolytes normal. ASSESSMENT: 1. [id number] pancreatitis, improving. We will start clear liquids today. 2. Acute anemia, possibly due to hemodilution. Blood work yesterday could have been concentrated due to dehydration. We will also compare this to her outpatient labs and repeat a hemoglobin this afternoon. She has not passed any stools to suggest melena. She is not tachycardic to suggest that she is actively bleeding. 3. Leukocytosis, resolved. No further antibiotics have been ordered. We will continue to monitor for fever or chills. 4. Smoking. She is on a nicotine patch. 5. Anxiety. She has medications available, but has not used them. 6. History of alcohol use. She denies any current use. PLAN: The patient will continue inpatient cares. We will turn her IV fluids down to 75 mL/h. We will repeat hemoglobin this afternoon and lab work again tomorrow. She did get a dose of Toradol yesterday in the ER. For now, we will continue with Dilaudid for pain control, clear liquid diet, consider advancing tomorrow. MKA: 05/28/2017 08:32:52 MODL: 05/28/2017 08:46:16 /[id number]
[2017-05-28] MEDS ORDERED: HYDROmorphone 2 MG Tab PO PRN (16:22)
[2017-05-28] MEDS: Morphine 2 MG/ML Syringe IVPUSH PRN ×3 (17:28→22:21)
[2017-05-28] MEDS: Sodium Chloride 0.9% 1,000 ML IV SCH (17:40)
[2017-05-28] MEDS: Melatonin 3 MG Tab PO SCH (20:26)
[2017-05-29] MEDS: Morphine 2 MG/ML Syringe IVPUSH PRN ×4 (01:02→11:03)
[2017-05-29] MEDS: Omeprazole 20 MG Cap.CR PO SCH ×2 (05:45→07:36)
[2017-05-29] MEDS: Sodium Chloride 0.9% 1,000 ML IV SCH (06:14)
[2017-05-29 07:12] LABS: CHLORIDE,CL 106 mmol/L (98-107); SODIUM,NA 141 mmol/L (136-145)
[2017-05-29] MEDS: Nicotine 7 MG/24 Hr Patch TRDERM SCH (08:12)
[2017-05-29] MEDS: Amylase/Lipase/Protease 10,000 Unit Cap.CR PO SCH ×2 (08:22→12:07)
[2017-05-29] MEDS ORDERED: Magnesium Sulfate/Water 2 GM in Premix Bag 1 BAG IV ONE (08:33)
[2017-05-29] MEDS ORDERED: Potassium Chloride 20 MEQ in Premix Bag 1 BAG IV ONE (08:33)
[2017-05-29 14:41] VITALS: BP 121/80
--- NOTE | 2017-05-30 03:05 | DISCH ---
PRIMARY DISCHARGE DIAGNOSIS: [id number] pancreatitis. SECONDARY DISCHARGE DIAGNOSES: 1. Hypokalemia, hypomagnesemia, probably due to poor oral intake. 2. Underlying anxiety, the patient did not require any Ativan during her stay, she attributes her anxiety to her health problems. 3. History of smoking, she is on the nicotine patch otherwise. 4. Anemia, mild, possibly due to some hemodilution with improved and stable hemoglobin on discharge. 5. Leukocytosis, resolved, did get 1 dose of intravenous Invanz, no evidence of infections noted during her stay. 6. History of alcohol use. REASON FOR ADMISSION: On the date of admission, this 36-year-old female came to the emergency room because of increasing abdominal pain. She has had multiple previous episodes of pancreatitis. She has had procedures included a celiac plexus block in March. She had done well after that. Otherwise, the patient was receiving IV Dilaudid, we switched over to morphine due to availability, we actually decreased down to just 2 mg, which she was going at least 4 hours without, but was using up to 14 mg of morphine in the 24 hours prior to discharge, that is when she was n.p.o. except for liquids; so, was not trying oral pain pills. On the morning of discharge, we did advance her diet, she was tolerating that well, she was hoping to be discharged home later in the day. We discussed with her replacing the potassium and magnesium IV and she was agreeable. Otherwise, she does have tramadol available at home she received from Dr. Herrera, her GI specialist, she has a followup with him next week. She will use the tramadol she has at home. PHYSICAL EXAMINATION: Vital Signs: On discharge include a temperature 98.9, pulse 81, blood pressure 127/79, respiratory rate 16, and O2 of 100% on room air. General: She is in no acute distress. Heart: Regular rate and rhythm S1, S2 without murmur. Lungs: Sounds are clear to auscultation bilaterally without crackles or wheezes. Abdomen: Positive bowel sounds and soft. There is some mild left [id number] quadrant tenderness without rebound or guarding. Extremities: Warm and dry. No edema. She was not started on Lovenox during her stay due to drop in hemoglobin down to 8.6 and she was up and ambulatory, hemoglobin was up to 10.2 today, the patient did relate that her pain got worse when she was up moving around; otherwise, while she was in bed resting comfortably, it was fine, lipase on admission was 1800, but it was not repeated, potassium was 3.2, and magnesium 1.5 before her boluses. DISCHARGE PLANS AND INSTRUCTIONS: She will follow up in the clinic with Darci Castaneda in 1 to 2 weeks for a posthospital followup to include a BMP and magnesium level. She will be on magnesium 400 mg daily and potassium 20 mEq daily until her discharge. Otherwise, she will see Dr. Herrera of GI next week. We recommended a low fat diet as tolerated. Greater than 30 minutes spent on this discharge process. MKA: 05/29/2017 13:22:00 MODL: 05/30/2017 02:58:47 /[id number]
== END 2017-05-29 14:46 | disposition home or self-care (01) | DRG 440 ==
LOC: VM.ED 10:48 → VM.MS 15:31
PROVIDERS: ADMIT Internal Medicine; ATTEND Internal Medicine
DX: K85.90 Acute pancreatitis without necrosis or infection, unspecified (principal); K86.1 Other chronic pancreatitis; D64.9 Anemia, unspecified; E87.6 Hypokalemia; E83.42 Hypomagnesemia; K58.9 Irritable bowel syndrome, unspecified; F34.1 Dysthymic disorder; F41.9 Anxiety disorder, unspecified; F17.210 Nicotine dependence, cigarettes, uncomplicated; F10.21 Alcohol dependence, in remission; Z88.1 Allergy status to other antibiotic agents; Z79.899 Other long term (current) drug therapy
CPT/HCPCS: 36415; 74177; 80048; 80053; 80069; 81001; 81025; 82150; 82550; 82977; 83690; 83735; 84484; 85014; 85018; 85025; 85610; 86140; 96361; 96365; 96375; 96376; 99285; A9270-GY; J0780; J1170; J1200; J1335; J1885; J2270; J2405; J3475; J3480; J7030; J7050; Q9967

== ENCOUNTER 2018-04-30 02:20 | Emergency (ER) | payer BC, OTHER ==
[2018-04-30] MEDS ORDERED: Sodium Chloride 0.9% 1,000 ML IV ONE (02:32)
[2018-04-30] MEDS ORDERED: Sodium Chloride 0.9% 10 ML Syringe FLUSH PRN (02:32)
[2018-04-30] MEDS ORDERED: Ondansetron 4 MG/2 ML SDV IVPUSH ONE (02:33)
[2018-04-30] MEDS ORDERED: Ketorolac 30 MG/ML SDV IVPUSH ONE (02:34)
--- NOTE | 2018-04-30 02:42 | EDM.PDOC ---
ED HPI GENERAL MEDICAL PROBLEM - General Chief Complaint: Abdominal Pain Stated Complaint: Epigastric, abdominal pain Time Seen by Provider: 04/30/18 02:30 Source of Information: Reports: Patient, Family, RN, RN Notes Reviewed History Limitations: Reports: No Limitations - History of Present Illness INITIAL COMMENTS - FREE TEXT/NARRATIVE: Patient presents to the ED at [facility] complaining of epigastric pain that started around 6pm last evening. She states the pain radiates to the middle of her back. She feels nauseated but has not vomited. No diarrhea. The pain is a pressure/burning sensation. No SOB or chest pain. No focal neurological complaints. Patient has a history of pancreatitis. She had a whipple procedure last July and has been doing well since then. She is concerned because her current symptoms seem similar to the whipple procedure. Onset Date: 04/29/18 Onset Time: 18:00 Duration: Constant, Getting Worse Location: Reports: Abdomen, Back Quality: Reports: Burning, Pressure Severity: Moderate Improves with: Reports: None Worsens with: Reports: None Context: Denies: Activity, Sick Contact, Trauma Associated Symptoms: Reports: Nausea/Vomiting Treatments HOME WORKER: Reports: Other (see below) (None) Epigastric Pain Score (Numeric/FACES): 6 - Related Data Allergies Allergy/AdvReac Type Severity Reaction Status Date / Time trimethoprim [From Bactrim] Allergy Mild Itching Verified 04/30/18 02:29 sulfamethoxazole Allergy Itching Verified 04/30/18 02:29 [From Bactrim] Home Meds: Home Meds ClonazePAM [KlonoPIN] 0.5 mg PO BID PRN 04/30/18 [History] Dicyclomine [Bentyl] 10 mg PO TID 04/30/18 [History] Ondansetron HCl [Zofran] 4 mg PO Q4H 5 Days #20 tablet 04/30/18 [Rx] Ondansetron [Ondansetron ODT] 4 mg PO Q6H PRN 04/30/18 [History] Past Medical History HEENT History: Reports: None Gastrointestinal History: Reports: Irritable Bowel Syndrome, Pancreatitis, Other (See Below) Other Gastrointestinal History: ERCP, stent for bile duct - 2 months ago - was taken out, nerve block to surgical area,stent had to be removed after 1 week; new route for bile duct created. 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 Neurological History: Reports: Concussion Psychiatric History: Reports: Anxiety - Infectious Disease History Infectious Disease History: Reports: Chicken Pox - Past Surgical History HEENT Surgical History: Reports: Oral Surgery, Other (See Below) Other HEENT Surgeries/Procedures: wisdom teeth removed GI Surgical History: Reports: Cholecystectomy, ERCP Social & Family History - Family History HEENT: Reports: None Cardiac: Reports: Bypass, Hypertension, Other (See Below) Other Cardiac Family History: mother quad bypass Respiratory: Reports: None Other Respiratory Family Hisory: Lung Ca GI: Reports: None : Reports: None OBGYN: Reports: None Musculoskeletal: Reports: None Neurological: Reports: None Psychiatric: Reports: None Endocrine/Metabolic: Reports: None Hematologic: Reports: None Immunologic: Reports: None Dermatologic: Reports: None Oncologic: Reports: Colon, Other (See Below) Other Oncologic Family History: grandma colon ca - Caffeine Use Caffeine Use: Reports: Soda ED ROS GENERAL - Review of Systems Review Of Systems: See Below Constitutional: Denies: Fever, Chills, Weakness Respiratory: Denies: Shortness of Breath, Cough Cardiovascular: Denies: Chest Pain, Palpitations GI/Abdominal: Reports: Abdominal Pain, Nausea. Denies: Black Stool, Bloody Stool, Constipation, Diarrhea, Vomiting Musculoskeletal: Reports: Back Pain (2/2 abdominal pain) Skin: Reports: No Symptoms Neurological: Reports: No Symptoms ED EXAM, GI/ABD - Physical Exam Exam: See Below Exam Limited By: No Limitations General Appearance: Alert, No Apparent Distress Respiratory/Chest: No Respiratory Distress, Lungs Clear, Normal Breath Sounds Cardiovascular: Normal Peripheral Pulses, Regular Rate, Rhythm GI/Abdominal Exam: Guarding, Rigid, Tender (epigastric), Abnormal Bowel Sounds ( Hyperactive x4). No: Rebound Back Exam: Normal Inspection Neurological: Alert, Oriented Skin Exam: Warm, Dry, Intact, Normal Color Course - Vital Signs Last Recorded V/S: Last Vital Signs Temp 36.6 C 04/30/18 02:27 Pulse 94 04/30/18 02:27 Resp 20 04/30/18 02:27 BP 141/99 H 04/30/18 02:27 Pulse Ox 97 04/30/18 02:27 - Orders/Labs/Meds Orders: Active Orders 24 hr Category Date Time Status Abdomen Pelvis w Cont [CT] Stat Exams 04/30/18 02:36 Taken UA W/MICROSCOPIC [URIN] Stat Lab 04/30/18 02:43 Ordered Sodium Chloride 0.9% [Saline Flush] Med 04/30/18 02:32 Active 10 ml FLUSH ASDIRECTED PRN Peripheral IV Insertion Adult [OM.PC] Routine Oth 04/30/18 02:32 Ordered Medication Orders Sodium Chloride (Saline Flush) 10 ml FLUSH ASDIRECTED PRN PRN Reason: Keep Vein Open Labs: Laboratory Tests 04/30/18 04/30/18 04/30/18 Range/Units 02:43 02:50 02:50 WBC 10.4 H (4.0-10.0) x10^3/uL RBC 3.77 L (4.00-5.50) x10^6/uL Hgb 12.7 D (12.0-16.0) g/dL Hct 37.2 (33.0-47.0) % MCV 98.7 H D (78.0-93.0) fL MCH 33.7 H (26.0-32.0) pg MCHC 34.1 (32.0-36.0) g/dL RDW Coeff of [place] 12.8 (10.0-15.0) % Plt Count 219 D (130-400) x10^3/uL Neut % (Auto) 67.2 (50.0-80.0) % Lymph % (Auto) 18.6 L (25.0-50.0) % [place] % (Auto) 12.9 H (2.0-11.0) % Eos % (Auto) 1.2 (0.0-4.0) % Baso % (Auto) 0.1 L (0.2-1.2) % Sodium 134 L (136-145) mmol/L Potassium 3.8 (3.5-5.1) mmol/L Chloride 101 (98-107) mmol/L Carbon Dioxide 23 (21-32) mmol/L Anion Gap 13.8 (10-20) mmol/L BUN 11 (7-18) mg/dL Creatinine 0.7 (0.55-1.02) mg/dL Est Cr Clr Drug Dosing 85.95 mL/min Estimated GFR (MDRD) > 60 Glucose 116 H (74-106) mg/dL Calcium 8.8 (8.5-10.1) mg/dL Amylase 167 H (25-115) U/L Lipase 2918 H (73-393) U/L Urine Color Dark yellow H (YELLOW) Urine Appearance Slightly cloudy H (CLEAR) Urine pH 7.0 (5.0-8.0) Ur Specific [place] 1.025 Urine Protein Trace H (NEGATIVE) mg/dL Urine Glucose (UA) Negative (NEGATIVE) mg/dL Urine Ketones Negative (NEGATIVE) mg/dL Urine Occult Blood Negative (NEGATIVE) Urine Nitrite Negative (NEGATIVE) Urine Bilirubin Small H (NEGATIVE) Urine Urobilinogen 0.2 (0.2) EU/dL Ur Leukocyte Esterase Negative (NEGATIVE) Urine RBC 0-5 (NOT SEEN) /HPF Urine WBC 0-5 (NOT SEEN) /HPF Ur Squamous Epith Cells Few H (NEGATIVE) /HPF Urine Bacteria Few H (NEGATIVE) /HPF Urine Mucus Many H (NEGATIVE) /LPF Meds: Medications Generic Name Dose Route Start Last Admin Trade Name Freq PRN Reason Stop Dose Admin Sodium Chloride 10 ml 04/30/18 02:32 Saline Flush FLUSH ASDIRECTED PRN Keep Vein Open Discontinued Medications Generic Name Dose Route Start Last Admin Trade Name Freq PRN Reason Stop Dose Admin Hydromorphone HCl 1 mg 04/30/18 03:48 Dilaudid IVPUSH 04/30/18 03:49 ONETIME ONE Sodium Chloride 1,000 mls @ 999 mls/hr 04/30/18 02:32 04/30/18 02:50 Normal Saline IV 04/30/18 03:32 999 mls/hr ONETIME ONE Administration Iopamidol 100 ml 04/30/18 03:18 04/30/18 03:34 Isovue-300 (61%) IVPUSH 04/30/18 03:19 100 ml ONETIME ONE Administration Ketorolac Tromethamine 30 mg 04/30/18 02:34 04/30/18 02:55 Toradol IVPUSH 04/30/18 02:35 30 mg ONETIME ONE Administration Ondansetron HCl 4 mg 04/30/18 02:33 04/30/18 02:53 Zofran IVPUSH 04/30/18 02:34 4 mg ONETIME ONE Administration Departure - Departure Time of Disposition: 03:58 Disposition: Home, Self-Care 01 Condition: Good Clinical Impression: Acute pancreatitis Qualifiers: Pancreatitis type: unspecified pancreatitis type Acute pancreatitis complication: unspecified Qualified Code(s): K85.90 - Acute pancreatitis without necrosis or infection, unspecified - Discharge Information *PRESCRIPTION DRUG MONITORING PROGRAM REVIEWED*: Not Applicable *COPY OF PRESCRIPTION DRUG MONITORING REPORT IN PATIENT ABRAHAM: Not Applicable Prescriptions: Ondansetron HCl [Zofran] 4 mg PO Q4H 5 Days #20 tablet Instructions: Acute Pancreatitis Referrals: Camila Ruiz DO [Physician] - Forms: ED Department Discharge Additional Instructions: 1. Stay well hydrated and rest 2. LOTS of water 3. Eat a bland diet; avoid high fatty, greasy foods 4. Use nausea medications, especially when you eat 5. See Dr. Ruiz this week for a recheck 6. Call with any questions or concerns - Problem List Review Problem List Initiated/Reviewed/Updated: Yes - My Orders Last 24 Hours: My Active Orders 04/30/18 02:32 Sodium Chloride 0.9% [Saline Flush] 10 ml FLUSH ASDIRECTED PRN Peripheral IV Insertion Adult [OM.PC] Routine 04/30/18 02:36 Abdomen Pelvis w Cont [CT] Stat 04/30/18 02:43 UA W/MICROSCOPIC [URIN] Stat - Assessment/Plan Last 24 Hours: My Active Orders 04/30/18 02:32 Sodium Chloride 0.9% [Saline Flush] 10 ml FLUSH ASDIRECTED PRN Peripheral IV Insertion Adult [OM.PC] Routine 04/30/18 02:36 Abdomen Pelvis w Cont [CT] Stat 04/30/18 02:43 UA W/MICROSCOPIC [URIN] Stat Assessment:: Acute Pancreatitis Plan: Labs and CT discussed with patient for acute pancreatitis. Recommend bland diet. LOTS of water. Avoid any triggers. Use antiemetics. See PCP today. Patient is not septic, no fever, slightly elevated WBC, VSS, no admission advised. Pain control and antiemetics are guideline treatment. Discussed if symptoms get worse and she is not able to drink liquids, she should return.
[2018-04-30] MEDS ORDERED: Iopamidol 612 MG/ML 100 ML Bottle IVPUSH ONE (03:18)
[2018-04-30 03:19] LABS: CHLORIDE,CL 101 mmol/L (98-107); SODIUM,NA 134 mmol/L (136-145)
[2018-04-30 03:22] LABS: ANION GAP 13.8 mmol/L (10-20)
[2018-04-30] MEDS ORDERED: HYDROmorphone 1 MG/ML Syringe IVPUSH ONE (03:48)
[2018-04-30 04:34] VITALS: BP 128/96
== END 2018-04-30 04:16 | disposition home or self-care (01) ==
LOC: VM.ED 02:20
DX: K85.90 Acute pancreatitis without necrosis or infection, unspecified (principal); Z88.2 Allergy status to sulfonamides
CPT/HCPCS: 74177; 80048; 81001; 82150; 83690; 85025; 96361; 96374; 96375; 99284; J1170; J1885; J2405; J7030; Q9967

== ENCOUNTER 2023-05-13 16:08 | Emergency (ER) | payer BC ==
[2023-05-13 16:25] VITALS: BP 143/90; PULSE 117
[2023-05-13] MEDS ORDERED: Albuterol/Ipratropium 3.0-0.5 MG/3 ML Neb Soln NEB ONE (16:25)
[2023-05-13 17:13] LABS: CORONAVIRUS COVID-19 NAA NEGATIVE (NEGATIVE); INFLUENZA A NAA NEGATIVE (NEGATIVE); INFLUENZA B NAA NEGATIVE (NEGATIVE); RESPIRATORY SYNCYTIAL VIR NAA NEGATIVE (NEGATIVE)
== END 2023-05-13 17:25 | disposition home or self-care (01) ==
LOC: VM.ED 16:08
DX: J40 Bronchitis, not specified as acute or chronic (principal); Z20.822 Contact with and (suspected) exposure to COVID-19; Z79.899 Other long term (current) drug therapy; Z88.2 Allergy status to sulfonamides; Z88.8 Allergy status to other drugs, medicaments and biological substances
CPT/HCPCS: 0241U; 71046; 94640; 99284; J7620-GY

== ENCOUNTER 2023-06-21 15:04 | Emergency (ER) | payer BC ==
[2023-06-21] MEDS ORDERED: Sodium Chloride 0.9% 10 ML Syringe FLUSH PRN (15:25)
[2023-06-21 15:38] LABS: BASOPHILS PERCENT AUTO 0.2 % (0.2-1.2); EOSINOPHILS PERCENT AUTO 0.5 % (0.0-4.0); HEMATOCRIT 37.1 % (33.0-47.0); LYMPHOCYTES ABSOLUTE AUTO 2.3 x10^3/uL (1.0-4.8); LYMPHOCYTES PERCENT AUTO 26.6 % (25.0-50.0); MEAN CORPUSCULAR HEMOGLOBIN 37.2 pg (26.0-32.0); MEAN CORPUSCULAR VOLUME 106.3 fL (78.0-93.0); MONOCYTES PERCENT AUTO 10.9 % (2.0-11.0); NEUTROPHILS ABSOLUTE AUTO 5.4 x10^3/uL (1.8-7.7); NEUTROPHILS PERCENT AUTO 61.8 % (50.0-80.0); PLATELET COUNT,PLT 147 x10^3/uL (130-400); RED BLOOD CELL COUNT 3.49 x10^6/uL (4.00-5.50); WHITE BLOOD CELL COUNT,WBC 8.8 x10^3/uL (4.0-10.0)
[2023-06-21 15:43] LABS: APPEARANCE,URINE SLIGHTLY CLOUDY (CLEAR); BILIRUBIN,URINE SMALL (NEGATIVE); COLOR,URINE DARK YELLOW (YELLOW); GLUCOSE,URINE NEGATIVE (NEGATIVE); KETONES,URINE TRACE mg/dL (NEGATIVE); LEUKOCYTE ESTERASE,URINE NEGATIVE (NEGATIVE); NITRITE,URINE NEGATIVE (NEGATIVE); OCCULT BLOOD,URINE TRACE-INTACT (NEGATIVE); PROTEIN,URINE 30 mg/dL (NEGATIVE); UROBILINOGEN,URINE 0.2 EU/dL (0.2)
[2023-06-21 15:48] LABS: BACTERIA,URINE FEW /HPF (NOT SEEN); MUCUS,URINE FEW /LPF (NOT SEEN); RBC,URINE 0-5 /HPF (NOT SEEN); SQUAMOUS EPITHELIAL CELLS,UR MODERATE /HPF (NOT SEEN); WBC,URINE 0-5 /HPF (NOT SEEN)
[2023-06-21 15:53] LABS: INR 1.1 (0.9-1.1); PROTHROMBIN TIME 11.9 SEC (9.5-12.2); PTT,PARTIAL THROMBOPLSTIN TIME 27.2 SEC (23.6-33.6)
[2023-06-21 15:56] LABS: A/G RATIO 0.49; ALANINE AMINOTRANSFERASE,ALT 69 U/L (14-59); ALBUMIN 2.2 g/dL (3.4-5.0); ALKALINE PHOSPHATASE 344 U/L (46-116); ASPARTATE AMNIOTRANSFERASE,AST 187 U/L (15-37); BILIRUBIN TOTAL 1.2 mg/dL (0.2-1.0); BLOOD UREA NITROGEN,BUN 1 mg/dL (7-18); C-REACTIVE PROTEIN 2.34 mg/dL (<=0.30); CARBON DIOXIDE,CO2 27 mmol/L (21-32); CHLORIDE,CL 99 mmol/L (98-107); CREATININE 0.5 mg/dL (0.55-1.02); GLUCOSE RANDOM 120 mg/dL (70-99); LIPASE 7 U/L (19-71); MAGNESIUM 1.9 mg/dL (1.8-2.4); PROTEIN TOTAL,TP 6.7 g/dL (6.4-8.2); SODIUM,NA 138 mmol/L (136-145)
[2023-06-21 15:57] LABS: ANION GAP 14.5 mmol/L (5-15); ESTIMATED GFR 122 mL/min (>=60); POTASSIUM,K 2.5 mmol/L (3.5-5.1)
[2023-06-21 15:59] LABS: LACTIC ACID 2.9 mmol/L (0.4-2.0)
[2023-06-21] MEDS: Iopamidol 612 MG/ML 100 ML Bottle IVPUSH ONE (16:26)
[2023-06-21] MEDS: Sodium Chloride 0.9% 1,000 ML IV SCH (16:30)
[2023-06-21] MEDS: Potassium Chloride Riders 20 MEQ in Premix Bag 1 BAG IV ONE (16:33)
[2023-06-21] MEDS: Ondansetron 4 MG/2 ML SDV IVPUSH ONE (16:54)
[2023-06-21] MEDS: HYDROmorphone 0.5 MG/0.5 ML Syringe IVPUSH ONE (16:59)
[2023-06-21] MEDS: Piperacillin/Tazobactam 4.5 GM in Sodium Chloride 0.9% 100 ML IV ONE (17:18)
[2023-06-21 17:21] VITALS: BP 134/92; PULSE 95
[2023-06-21] MEDS: HYDROmorphone 1 MG/ML Syringe IVPUSH ONE (18:22)
== END 2023-06-21 18:28 | disposition short-term general hospital (02) ==
LOC: VM.ED 15:04
DX: R18.8 Other ascites (principal); F17.210 Nicotine dependence, cigarettes, uncomplicated; Z88.2 Allergy status to sulfonamides; Z88.8 Allergy status to other drugs, medicaments and biological substances; Z79.899 Other long term (current) drug therapy
CPT/HCPCS: 74177; 80053; 81001; 81025; 82140; 83605; 83690; 83735; 85025; 85610; 85730; 86140; 96365; 96368; 96375; 96376; 99285; J1170; J2405; J2543; J3480; J3490; J7030; Q9967; 36415

== ENCOUNTER 2023-08-07 12:46 | Emergency (ER) | payer BC ==
[2023-08-07 13:26] LABS: BASOPHILS PERCENT AUTO 0.1 % (0.2-1.2); EOSINOPHILS ABSOLUTE AUTO 0.1 x10^3/uL (0.0-0.5); EOSINOPHILS PERCENT AUTO 0.4 % (0.0-4.0); HEMATOCRIT 25.7 % (33.0-47.0); HEMOGLOBIN 8.3 g/dL (12.0-16.0); IMMATURE GRAN ABSOLUTE AUTO 0.11 x10^3/uL (0.00-0.07); LYMPHOCYTES ABSOLUTE AUTO 2.4 x10^3/uL (1.0-4.8); LYMPHOCYTES PERCENT AUTO 12.3 % (25.0-50.0); MEAN CORPUSCULAR HGB CONC 32.3 g/dL (32.0-36.0); MEAN CORPUSCULAR VOLUME 108.4 fL (78.0-93.0); MONOCYTES ABSOLUTE AUTO 1.9 x10^3/uL (0.0-0.8); MONOCYTES PERCENT AUTO 9.9 % (2.0-11.0); NEUTROPHILS ABSOLUTE AUTO 14.9 x10^3/uL (1.8-7.7); PLATELET COUNT,PLT 180 x10^3/uL (130-400); RED BLOOD CELL COUNT 2.37 x10^6/uL (4.00-5.50); WHITE BLOOD CELL COUNT,WBC 19.4 x10^3/uL (4.0-10.0)
[2023-08-07] MEDS ORDERED: Sodium Chloride 0.9% 1,000 ML IV ONE (13:26)
[2023-08-07 13:40] LABS: NEUTROPHILS PERCENT AUTO 76.7 % (50.0-80.0)
[2023-08-07 13:49] LABS: APPEARANCE,URINE SLIGHTLY CLOUDY (CLEAR); BILIRUBIN,URINE SMALL (NEGATIVE); COLOR,URINE AMBER (YELLOW); GLUCOSE,URINE NEGATIVE (NEGATIVE); KETONES,URINE TRACE mg/dL (NEGATIVE); LEUKOCYTE ESTERASE,URINE NEGATIVE (NEGATIVE); NITRITE,URINE POSITIVE (NEGATIVE); OCCULT BLOOD,URINE TRACE-INTACT (NEGATIVE); PH,URINE 5.5 (5.0-8.0); PROTEIN,URINE TRACE mg/dL (NEGATIVE); UROBILINOGEN,URINE 0.2 EU/dL (0.2)
[2023-08-07 13:51] LABS: A/G RATIO 0.47; ALANINE AMINOTRANSFERASE,ALT 23 U/L (14-59); ALBUMIN 1.8 g/dL (3.4-5.0); ALKALINE PHOSPHATASE 143 U/L (46-116); ANION GAP 12.6 mmol/L (5-15); ASPARTATE AMNIOTRANSFERASE,AST 95 U/L (15-37); BILIRUBIN TOTAL 3.7 mg/dL (0.2-1.0); BLOOD UREA NITROGEN,BUN 13 mg/dL (7-18); CALCIUM 7.9 mg/dL (8.5-10.1); CARBON DIOXIDE,CO2 26 mmol/L (21-32); CHLORIDE,CL 98 mmol/L (98-107); CREATININE 1.4 mg/dL (0.55-1.02); ESTIMATED GFR 49 mL/min (>=60); GLUCOSE RANDOM 94 mg/dL (70-99); LIPASE 6 U/L (19-71); POTASSIUM,K 3.6 mmol/L (3.5-5.1); PROTEIN TOTAL,TP 5.6 g/dL (6.4-8.2); SODIUM,NA 133 mmol/L (136-145)
[2023-08-07 14:06] LABS: BACTERIA,URINE RARE /HPF (NOT SEEN); HYALINE CASTS,URINE FEW; MUCUS,URINE FEW /LPF (NOT SEEN); RBC,URINE 0-5 /HPF (NOT SEEN); SQUAMOUS EPITHELIAL CELLS,UR MANY /HPF (NOT SEEN); WBC,URINE 0-5 /HPF (NOT SEEN)
[2023-08-07 14:21] LABS: CORONAVIRUS COVID-19 NAA NEGATIVE (NEGATIVE); INFLUENZA A NAA NEGATIVE (NEGATIVE); INFLUENZA B NAA NEGATIVE (NEGATIVE); RESPIRATORY SYNCYTIAL VIR NAA NEGATIVE (NEGATIVE)
[2023-08-07] MEDS ORDERED: Iopamidol 612 MG/ML 100 ML Bottle IVPUSH ONE (14:28)
[2023-08-07] MEDS ORDERED: HYDROmorphone 0.5 MG/0.5 ML Syringe IVPUSH ONE (15:29)
[2023-08-07] MEDS ORDERED: Naloxone 0.4 MG/ML SDV IVPUSH PRN (15:29)
[2023-08-07] MEDS ORDERED: cefTRIAXone 2 GM Vial IVPUSH ONE (16:07)
[2023-08-07 16:25] VITALS: PULSE 81
[2023-08-07 16:27] VITALS: BP 93/53
[2023-08-07] MEDS ORDERED: Doxycycline Monohydrate 100 MG Cap PO ONE (17:37)
[2023-08-07] MEDS ORDERED: Sodium Chloride 0.9% 1,000 ML IV SCH (17:45)
== END 2023-08-07 18:45 | disposition short-term general hospital (02) ==
LOC: VM.ED 12:46
DX: J18.9 Pneumonia, unspecified organism (principal); N17.9 Acute kidney failure, unspecified; K70.31 Alcoholic cirrhosis of liver with ascites; F17.200 Nicotine dependence, unspecified, uncomplicated; Z20.822 Contact with and (suspected) exposure to COVID-19; Z79.899 Other long term (current) drug therapy; Z91.048 Other nonmedicinal substance allergy status
CPT/HCPCS: 0241U; 36415; 71045; 71260; 74177; 80053; 81001; 83690; 83880; 85025; 86140; 87086; 96361; 96374; 96375; 99284; 99285-25; A9270-GY; J0696; J1170; J7030; Q9967

== ENCOUNTER 2023-09-28 09:43 | Emergency (ER) | payer BC ==
[2023-09-28 10:55] LABS: EOSINOPHILS PERCENT AUTO 0.4 % (0.0-4.0); HEMATOCRIT 24.4 % (33.0-47.0); HEMOGLOBIN 7.5 g/dL (12.0-16.0); IMMATURE GRAN ABSOLUTE AUTO 0.03 x10^3/uL (0.00-0.07); LYMPHOCYTES PERCENT AUTO 25.1 % (25.0-50.0); MEAN CORPUSCULAR HEMOGLOBIN 31.4 pg (26.0-32.0); MEAN CORPUSCULAR HGB CONC 30.7 g/dL (32.0-36.0); MEAN CORPUSCULAR VOLUME 102.1 fL (78.0-93.0); MONOCYTES ABSOLUTE AUTO 1.1 x10^3/uL (0.0-0.8); MONOCYTES PERCENT AUTO 13.1 % (2.0-11.0); NEUTROPHILS ABSOLUTE AUTO 4.9 x10^3/uL (1.8-7.7); PLATELET COUNT,PLT 173 x10^3/uL (130-400); RED BLOOD CELL COUNT 2.39 x10^6/uL (4.00-5.50)
[2023-09-28 11:23] LABS: A/G RATIO 0.41; ALBUMIN 1.5 g/dL (3.4-5.0); ANION GAP 15.2 mmol/L (5-15); BILIRUBIN TOTAL 1.3 mg/dL (0.2-1.0); C-REACTIVE PROTEIN 3.79 mg/dL (<=0.50); CREATININE 1.1 mg/dL (0.55-1.02); EST CRCL DRUG DOSING (CG) 51.23 mL/min; MAGNESIUM 2.5 mg/dL (1.8-2.4); POTASSIUM,K 4.2 mmol/L (3.5-5.1); PROTEIN TOTAL,TP 5.2 g/dL (6.4-8.2)
[2023-09-28 16:39] VITALS: BP 93/54; PULSE 82
== END 2023-09-28 15:01 | disposition short-term general hospital (02) ==
LOC: VM.ED 09:43
DX: R53.1 Weakness (principal); R18.8 Other ascites; R60.1 Generalized edema; Z90.49 Acquired absence of other specified parts of digestive tract; Z87.891 Personal history of nicotine dependence; Z79.899 Other long term (current) drug therapy; Z88.2 Allergy status to sulfonamides; Z91.048 Other nonmedicinal substance allergy status
CPT/HCPCS: 36415; 71045; 80053; 83690; 83735; 83880; 85025; 86140; 99284; 99285